=== PATIENT | male | born 1945 | race Caucasian/White ===

== ENCOUNTER 2019-12-13 18:45 | Emergency (ER) | payer OTHER ==
[~2019-12-13] VITALS: Ht 177.8 cm; Wt 113.4 kg
--- NOTE | 2019-12-13 19:00 | NUR ---
at bedside for MSE
--- NOTE | 2019-12-13 19:05 | NUR ---
Abrasion on posterior part of neck cleansed with normal saline and triple antibiotic placed, patient requests to have abrasion open to air, agrees to leave abrasion open to air
[2019-12-13] MEDS ORDERED: NEOMY/BACITRA/POLYMYXIN B OINT UD PACKET TP ONE ×2 (19:08→19:15)
--- NOTE | 2019-12-13 19:16 | NUR ---
Radiology took patient down to X-ray at this time for CT of head
--- NOTE | 2019-12-13 19:33 | NUR ---
patient back from radiology at this time
[2019-12-13 19:54] VITALS: BP 153/80
[2019-12-13] MEDS ORDERED: METO25TA6 PO (19:55)
[2019-12-13] MEDS ORDERED: OMEP20CA15 PO (19:55)
[2019-12-13] MEDS ORDERED: MIRT30TA7 PO (19:55)
[2019-12-13] MEDS ORDERED: SIMV-49 PO (19:55)
[2019-12-13] MEDS ORDERED: LISI2.5T2 PO (19:55)
[2019-12-13] MEDS ORDERED: LEVO75TA7 PO (19:55)
[2019-12-13] MEDS ORDERED: METF-440 PO (19:55)
[2019-12-13] MEDS ORDERED: BUSP5TAB3 PO (19:55)
--- NOTE | 2019-12-13 20:00 | NUR ---
Patient discharged to home in stable condition. Ambulated to car accompanid by sister with steady gait. Written and verbal after care instructions given. All belongings sent with patient. Given pillow case and check for neck abrasion. Patient verbalizes understanding of instructions. Stressed follow up or return to ER for worsening s/s.
== END 2019-12-13 20:00 | disposition home or self-care (01) ==
LOC: ER 18:45
DX: S00.01XA Abrasion of scalp, initial encounter (principal); W10.9XXA Fall (on) (from) unspecified stairs and steps, initial encounter; Y92.019 Unspecified place in single-family (private) house as the place of occurrence of the external cause; E11.9 Type 2 diabetes mellitus without complications; I25.10 Atherosclerotic heart disease of native coronary artery without angina pectoris; Z79.899 Other long term (current) drug therapy; I67.2 Cerebral atherosclerosis; M50.322 Other cervical disc degeneration at C5-C6 level; M48.02 Spinal stenosis, cervical region
CPT/HCPCS: 70450; 72125; A4217; A4663